=== PATIENT | female | born 1980 | race Caucasian/White ===

== ENCOUNTER 2025-07-01 09:10 | Emergency (ER) | payer OTHER ==
[2025-07-01] MEDS: ACETAMINOPHEN 500MG TABLET PO ONE (11:16)
[2025-07-01] MEDS: IBUPROFEN 400MG TABLET PO ONE (11:16)
[2025-07-01] MEDS: LIDOCAINE 5% PATCH TOP SCH (11:17)
[2025-07-01] MEDS ORDERED: TOPUD MT (11:42)
[2025-07-01] MEDS ORDERED: IBUP-2028 MT (11:42)
[2025-07-01 11:53] VITALS: BP 155/70; PULSE 71; RESP 15; TEMP 36.5; O2SAT 99
== END 2025-07-01 11:54 | disposition home or self-care (01) ==
LOC: ER 09:47
DX: M25.572 Pain in left ankle and joints of left foot (principal); M25.562 Pain in left knee
CPT/HCPCS: 73560; 73610; 99284